=== PATIENT | female | born 1960 | race Caucasian/White ===

== ENCOUNTER 2016-12-04 13:44 | Emergency (ER) ==
--- NOTE | 2016-12-04 14:36 | PROVIDER DOCUMENTATION ---
HPI-Abdominal Pain/GI Problem - General Source: patient - History of Present Illness-ABD Nature of Presenting Problems: HX of Gerd reports to ER with epigastric pain. Reports unable to get GERD medications due to it being the beginning of year and copay is so high. Also reports nausea. Denies cp,d,c. Abdominal Pain Onset Location: reports: epigastric Quality of Pain: reports: burning Severity in ED: reports: moderate Onset/Duration: reports: unsure Timing: reports: still present Bruising or Bleeding Gums?: No Similar Symptoms Previously?: Yes Recently seen or treated by another doctor?: No <Candice Anand - Last Filed: 12/04/16 15:32> <Khalida Teran - Last Filed: 12/04/16 15:41> - General Chief Complaint: Epigastric Pain Stated Complaint: ABD PAIN Time Seen by Provider: 12/04/16 14:36 Allergies/Adverse Reactions: Patient Allergies Allergy/AdvReac Type Severity Reaction Status Date / Time No Known Allergies Allergy Verified 12/04/16 13:55 Home Medications: Home Medication List Medication Instructions Recorded Confirmed Last Taken Type Cimetidine [Tagamet] 300 mg PO BID #60 tablet 12/04/16 Unknown Rx Ondansetron Odt [Zofran 4 mg Odt] 4 mg PO Q6H PRN PRN #15 tablet 12/04/16 Unknown Rx Review of Systems - Adult - REVIEW OF SYSTEMS - ADULT Constitutional: denies: chills, fever, fatique Eyes: reports: no symptoms reported Ears, Nose, Mouth & Throat: reports: no symptoms reported Cardiovascular: denies: chest pain, irregular heart rate, orthopnea Respiratory: reports: no symptoms reported Gastrointestinal: reports: abdominal pain, nausea. denies: diarrhea, rectal bleeding, vomiting Genitourinary: reports: no symptoms reported Musculoskeletal: reports: no symptoms reported Integumentary: reports: no symptoms reported Neurological: reports: no symptoms reported Psychiatric: reports: no symptoms reported Endocrine: reports: no symptoms reported Hematologic/Lymphatic: reports: no symptoms reported Allergic/Immunologic: reports: no symptoms reported All Other Systems: Reviewed and Negative <Candice Anand - Last Filed: 12/04/16 15:32> Past History - Adult - PAST MEDICAL HISTORY-ADULT Review of Records: reports: Nursing Assessment Review Major Childhood Illnesses: reports: denies history Cardiovascular: reports: HTN, hyperlipidemia Gastrointestinal: reports: GERD - PRIOR SURGERIES/PROCEDURES Surgical/Procedure History: reports: cholecystectomy, hysterectomy - IMMUNIZATION STATUS Childhood Immunizations: See Nurse Assessment Flu Vaccine: See Nurse Assessment - FAMILY HISTORY Family History: reviewed, not pertinent - SOCIAL HISTORY Smoking: cigarettes, less than 1 pack/day Provider spent 3-5 mins advising pt. on dangers of tobacco.: Discussed manners to quit use, and f/u contacts for add'l counseling. Substance Use: none/never <Candice Anand - Last Filed: 12/04/16 15:32> Physical Exam-General - PHYSICAL EXAM-ADULT Initial Vital Signs Reviewed: Yes - CONSTITUTIONAL General Appearance: appears well, alert, no apparent distress - EYES Eyes: PERRL/EOMI, pink conjunctivae - HEAD, EARS, NOSE, MOUTH & THROAT HENMT: normocephalic/atraumatic, moist mucous membranes - NECK Neck: non-tender, full range of motion, supple - RESPIRATORY Respiratory: chest non-tender, lungs clear, normal breath sounds - CARDIOVASCULAR Cardiovascular: regular rate, rhythm, no edema - GASTROINTESTINAL (ABDOMEN) Abdominal Exam: soft, tenderness (epigastric pain similar to prior pain from GERD) - MUSCULOSKELETAL Back Exam: normal inspection, no CVA tenderness, no vertebral tenderness Extremity: normal gait, normal inspection Peripheral Pulses: dorsalis-pedis (R): 2+, dorsalis-pedis (L): 2+ - SKIN Integumentary: normal color, normal turgor, warm/dry - NEUROLOGIC Neurologic: grossly normal, no motor/sensory deficits - PSYCHIATRIC Psych/Mental Status: normal thought content, normal thought process <Khalida Teran - Last Filed: 12/04/16 15:41> Progress - PLAN OF CARE/RESULTS Progress/Plan/Lab Results: Orders Category Date Time Status Lido/Edward Alk/Al&mg Hydrox [G.i. Cocktail] Med 12/04/16 14:56 Discontinued 30 ml PO NOW ONE EKG [EKG] Stat Ther 12/04/16 14:57 Ordered Vital Signs - 24 hr 12/04/16 13:52 Temperature 98.0 F Pulse Rate 83 Respiratory 18 Rate Blood Pressure 150/71 O2 Sat by Pulse 100 Oximetry - EKG 1 Time of EKG reading by physician:: 14:57 EKG Read and Signed by:: Irma Lopez EKG Interpretation (*Must complete 3 of following elements*): Abnormal Rate: 91 Rhythm: nsr [place]: right QRS: normal CO Interval: normal <ChengJazminmiguel - Last Filed: 12/04/16 15:32> - PLAN OF CARE/RESULTS Progress/Plan/Lab Results: Vital Signs Temp Pulse Resp BP Pulse Ox 12/04/16 13:52 98.0 F 83 18 150/71 100 No Known Allergies Allergy (Verified 12/04/16 13:55) No Home Medications 12/04/16 Orders Category Date Time Status Lido/Edward Alk/Al&mg Hydrox [G.i. Cocktail] Med 12/04/16 14:56 Discontinued 30 ml PO NOW ONE EKG [EKG] Stat Ther 12/04/16 14:57 Draft - REASSESSMENT Reassessment #1 Time Reassessed: 15:20 Status: improving Reassessment Comment: epigastric pain resolved with GI cocktail <Khalida Teran - Last Filed: 12/04/16 15:41> Departure <AnandCandice - Last Filed: 12/04/16 15:32> - Departure Time of Disposition Order: 15:39 Certified Medical Emergency: Emergent <Khalida Teran - Last Filed: 12/04/16 15:41> - Departure DIAGNOSIS: GERD (gastroesophageal reflux disease) Qualifiers: Esophagitis presence: esophagitis presence not specified Qualified Code(s): K21.9 - Gastro-esophageal reflux disease without esophagitis Disposition: HOME 01 Condition: Good Additional Instructions: ED Follow Up Instructions: You have been treated by a care provider in the Emergency Department. These instructions are being provided to you so you can have an understanding of how to care for yourself upon discharge. Upon discharge from the Emergency Department, you are responsible for making arrangements for follow-up care by a physician of your choice. Take all prescribed medications as directed. Return to the Emergency Department immediately for any new or worsening symptoms. You may call the Physician Referral phone number at [phone] to obtain a list of Physicians who are taking new patients. Prescriptions: Cimetidine [Tagamet] 300 mg PO BID #60 tablet Ondansetron Odt [Zofran 4 mg Odt] 4 mg PO Q6H PRN PRN #15 tablet PRN Reason: Nausea Attestation - Scribe Verification/Attestation Scribe:: Candice Anand Acting as Scribe for:: Khalida Teran Scribe documention review:: This chart was documented by a scribe and accurately reflects the service the provider performed and the decisions made by the provider. <Candice Anand - Last Filed: 12/04/16 15:32> - Physician/ PENG Attestation Patient care was provided by Advanced Practice Provider:: Yes Advanced Practice Provider:: Khalida Teran Advanced Practice Provider documentation review:: The Mid-level provider documentation, treatment plan and medical decision making was reviewed by the physician who agrees with all treatment and medical decision making by the MLP. <Khalida Teran - Last Filed: 12/04/16 15:41> Physician Attestation
[2016-12-04] MEDS ORDERED: G.I. COCKTAIL PO ONE (14:56)
--- NOTE | 2016-12-04 15:11 | EKG Report ---
Test Performed on : 12/04/2016 2:57:43 PM Test Reason : epigastric pain Blood Pressure : / mmHG Vent. Rate : 091 BPM Atrial Rate : 091 BPM P-R Int : 142 ms QRS Dur : 068 ms QT Int : 348 ms P-R-T Axes : 085 094 078 degrees QTc Int : 428 ms Normal sinus rhythm. Rightward axis Borderline ECG No previous ECGs available Unconfirmed Result
[2016-12-04 16:06] VITALS: BP 126/84
== END 2016-12-04 16:06 | disposition home or self-care (01) ==
LOC: P.ED 13:44
DX: K21.9 Gastro-esophageal reflux disease without esophagitis (principal); R94.31 Abnormal electrocardiogram [ECG] [EKG]; R10.13 Epigastric pain; R11.0 Nausea; R10.816 Epigastric abdominal tenderness; I10 Essential (primary) hypertension; E78.5 Hyperlipidemia, unspecified; F17.219 Nicotine dependence, cigarettes, with unspecified nicotine-induced disorders; Z71.6 Tobacco abuse counseling
CPT/HCPCS: 93005; 99282